=== PATIENT | female | born 1985 ===

== ENCOUNTER 2016-12-04 19:54 | Emergency (ER) | payer BC, OTHER ==
[2016-12-04 20:19] VITALS: RESP 19; BMI 25.8
[2016-12-04] MEDS ORDERED: Sodium Chloride 0.9% 1,000 ML IV STA (20:59)
[2016-12-04 21:23] LABS: ALB/GLOB RATIO 1.2 (1.1-1.8); ALKALINE PHOSPHATASE 66 U/L (38-133); ALT/SGPT 34 U/L (7-56); AST/SGOT 26 U/L (15-39); BILIRUBIN,TOTAL 0.5 mg/dL (0.2-1.3); BLOOD UREA NITROGEN 14 mg/dL (7-21); CALCIUM 9.4 mg/dL (8.4-10.5); CARBON DIOXIDE 26 mmol/L (21-33); CHLORIDE 99 mmol/L (98-107); GFR AFRICAN-AMERICAN > 60; GLUCOSE,RANDOM 100 mg/dL (70-110); POTASSIUM 3.4 mmol/L (3.6-5.0); SODIUM 135 mmol/L (132-148); TOTAL PROTEIN 7.7 g/dL (5.8-8.3)
[2016-12-04 21:25] LABS: ADD MANUAL DIFF? NO; BASO # 0.01 K/mm3 (0.0-2.0); BASO % 0.1 % (0.0-3.0); EOS # 0.2 (0.0-0.7); EOS % 2.1 % (1.5-5.0); GRAN # 5.29 (1.4-6.5); GRAN % 58.9 % (50.0-68.0); HEMATOCRIT 36.6 % (36.0-48.0); LYMPH # 2.9 (1.2-3.4); LYMPH % 32.3 % (22.0-35.0); MEAN CELL VOLUME 84.3 fL (80.0-105.0); MEAN CORPUSCULAR HEMOGLOBIN 29.5 pg (25.0-35.0); MEAN PLATELET VOLUME 9.5 fl (7.0-11.0); MONO # 0.6 (0.1-0.6); MONO % 6.6 % (1.0-6.0); PLATELET COUNT 233 10^3/uL (120.0-450.0); RED CELL DISTRIBUTION WIDTH 14.1 % (11.5-14.5)
[2016-12-04 22:35] LABS: URINE APPEARANCE CLEAR (CLEAR); URINE BILIRUBIN NEGATIVE (NEGATIVE); URINE BLOOD LARGE (NEGATIVE); URINE COLOR YELLOW (YELLOW); URINE GLUCOSE (UA) NEGATIVE (NEGATIVE); URINE KETONE NEGATIVE (NEGATIVE); URINE LEUKOCYTE ESTERASE TRACE Leu/uL (NEGATIVE); URINE PROTEIN NEGATIVE mg/dL (<30 mg/dL); URINE UROBILINOGEN 0.2 E.U./dL (<1 E.U./dL)
--- NOTE | 2016-12-04 23:00 | ED PDOC ---
Arrival/HPI - General Chief Complaint: Female Genitourinary Time Seen by Provider: 12/04/16 20:59 Historian: Patient - History of Present Illness Narrative History of Present Illness (Text): 12/04/16 22:58 31-year-old female presents today with vaginal bleeding that started just prior to arrival. Patient states she is and 20 the bathroom today and after urinating went to wipe and noticed bright red blood. Patient states when she stood up and looked in the toilet bowl that was blood within the toilet and also she got nervous and came to the emergency room. She denies any abdominal pain. Denies fevers or chills. No chest pain or shortness of breath. 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 Patient states she is only been one time in the past and has a 2-1/2-year-old girl who is healthy. Patient denies fevers or chills. Denies any urinary symptoms. Patient states the bleeding has stopped. No other complaints Time/Duration: Prior to Arrival Symptom Onset: Sudden Symptom Course: Resolved Past Medical History - Provider Review Nursing Documentation Reviewed: Yes - Travel History Have you recently traveled outside [place] w/in the past 3 mons?: No - Infectious Disease Hx of Infectious Diseases: None - Psychiatric Hx Substance Use: No - Surgical History Other/Comment: 1 vaginal - Anesthesia Hx Anesthesia: No Family/Social History - Physician Review Nursing Documentation Reviewed: Yes Family/Social History: Unknown Family HX Smoking Status: Never Smoked Hx Alcohol Use: No Hx Substance Use: No Allergies/Home Meds Allergies/Adverse Reactions: Allergies No Known Allergies Allergy (Verified 12/04/16 20:21) Home Medications: Home Meds Medication Instructions Recorded Confirmed No Known Home Med 12/04/16 12/04/16 Review of Systems - Review of Systems Constitutional: absent: Fatigue, Fevers Respiratory: absent: SOB, Cough Cardiovascular: absent: Chest Pain, Palpitations Gastrointestinal: absent: Abdominal Pain, Nausea, Vomiting Genitourinary Female: Vaginal Bleeding. absent: Dysuria, Frequency, Hematuria, Vaginal Discharge Musculoskeletal: absent: Arthralgias, Back Pain, Neck Pain Skin: absent: Rash, Pruritis Neurological: absent: Headache, Dizziness Psychiatric: absent: Anxiety, Depression Physical Exam Vital Signs Reviewed: Yes Vital Signs Temp Pulse Resp BP Pulse Ox 12/05/16 00:45 98.6 F 75 19 122/83 100 12/04/16 23:47 76 19 108/66 100 12/04/16 20:18 98.8 F 79 19 111/78 99 Temperature: Afebrile Blood Pressure: Normal Pulse: Regular Respiratory Rate: Normal Appearance: Positive for: Well-Appearing, Non-Toxic, Comfortable Pain Distress: None Mental Status: Positive for: Alert and Oriented X 3 - Systems Exam Head: Present: Atraumatic Mouth: Present: Moist Mucous Membranes Neck: Present: Normal Range of Motion Respiratory/Chest: Present: Clear to Auscultation, Good Air Exchange. No: Respiratory Distress, Accessory Muscle Use Cardiovascular: Present: Regular Rate and Rhythm, Normal S1, S2. No: Murmurs Abdomen: Present: Normal Bowel Sounds. No: Tenderness, Distention, Peritoneal Signs, Rebound, Guarding Genitourinary/Pelvic Exam: Present: Normal External Genitalia, Vaginal Bleeding (blood noted in vault; ), Cervical os Closed, Other (chaparoned by jaret [facility] ). No: Adenexal Mass, Cervical Motion Tendernes, Odor Back: Present: Normal Inspection. No: CVA Tenderness, Midline Tenderness, Paraspinal Tenderness Upper Extremity: Present: Normal Inspection. No: Cyanosis, Edema Lower Extremity: Present: Normal Inspection. No: Edema Neurological: Present: GCS=15, Speech Normal Skin: Present: Warm, Dry, Normal Color. No: Rashes Psychiatric: Present: Alert, Oriented x 3 Medical Decision Making ED Course and Treatment: 12/04/16 23:00 Patient is nontoxic well appearing in no distress. vital signs are stable. CBC: wnl CMP: wnl Beta hC TYPE AND SCREEN: B+ Urinalysis: + blood, trace leukocytes Ultrasound: FINDINGS: Gestation: There is a single living intrauterine gestation. There is a heart rate of 140 beats per minute. [place] rump length measures 7.16 cm. BPD measures 2.24 cm. FL measures approximately 1.07 cm A yolk sac is present, internal diameter measures 3.8 mm Placenta/amniotic fluid: Placenta is not well visualized. Amniotic fluid volume appears normal. Uterus/cervix: Uterus measures approximately 18 x 7.4 x 11.5 cm. There is a heterogeneous mass suggesting subchorionic hemorrhage. Ovaries: Neither ovary could be identified Free fluid: There is no free fluid. IMPRESSION: 13 week 3 day single living intrauterine gestation, estimated date of delivery 06/08/17 possible subchorionic hemorrhage pt with intermittent episodes of vaginal bleeding; after blood was released from vaginal vault, there was only minimal bleeding noted; no abdominal pain; pt denies cramping. case discussed in depth with dr. joy; pt with intermittent vaginal bleeding, heavy at times since prior to arrival. she states if patient is hemodynamically stable there is no indication to transfer patient for TRIM TECHNICIAN evaluation. Discussed all the results the patient and advised f/u with the low pressure boiler operator within the next 2 days. advised immediate return if symptoms worsen,persist or if new symptoms develop. Impression: threatened Tylenol every 4 hours as needed for pain Increase fluids Followup with the hims coder within the next 2 days Return immediately if symptoms worsen persist or if new symptoms develop: High fevers, heavy bleeding, severe abdominal pain, vomiting, diarrhea, dizziness or weakness or any other concerning symptoms develop. 12/05/16 01:00 - Lab Interpretations Lab Results: 12/04/16 20:59 12/04/16 21:00 Lab Results 12/04/16 21:40: Blood Type B POSITIVE, Antibody Screen Negative, BBK History Checked No verified bt 12/04/16 21:20: Urine Color Yellow, Urine Appearance Clear, Urine pH 7.0, Ur Specific [place] 1.015, Urine Protein Negative, Urine Glucose (UA) Negative, Urine Ketones Negative, Urine Blood Large H, Urine Nitrate Negative, Urine Bilirubin Negative, Urine Urobilinogen 0.2, Ur Leukocyte Esterase Trace H, Urine RBC 2 - 5, Urine WBC 0 - 2, Ur Epithelial Cells 1 - 3, Urine Bacteria Mod , Urine Other Fiber 12/04/16 21:00: Beta HCG, Quant 06079.00 H 12/04/16 21:00: Sodium 135, Potassium 3.4 L, Chloride 99, Carbon Dioxide 26, Anion Gap 13, BUN 14, Creatinine 0.6, Est GFR ( Amer) > 60, Est GFR (Non- Af Amer) > 60, Random Glucose 100, Calcium 9.4, Total Bilirubin 0.5, AST 26, ALT 34, Alkaline Phosphatase 66, Total Protein 7.7, Albumin 4.2, Globulin 3.5, Albumin/Globulin Ratio 1.2 12/04/16 20:59: WBC 9.0, RBC 4.34, Hgb 12.8, Hct 36.6, MCV 84.3, MCH 29.5, MCHC 35.0, RDW 14.1, Plt Count 233, MPV 9.5, Gran % 58.9, Lymph % (Auto) 32.3, [place] % (Auto) 6.6 H, Eos % (Auto) 2.1, Baso % (Auto) 0.1, Gran # 5.29, Lymph # 2.9, [place] # 0.6, Eos # 0.2, Baso # 0.01 - RAD Interpretation Radiology Orders: 12/04/16 20:59 AGE [US] Stat - Medication Orders Current Medication Orders: Discontinued Medications Sodium Chloride (Sodium Chloride 0.9%) 1,000 mls @ 999 mls/hr IV .Q1H1M STA Stop: 12/04/16 21:59 Last Admin: 12/04/16 21:07 Dose: 999 mls/hr Disposition/Present on Arrival - Present on Arrival Any Indicators Present on Arrival: No History of DVT/PE: No History of Uncontrolled Diabetes: No Urinary Catheter: No History of Decub. Ulcer: No History Surgical Site Infection Following: None - Disposition Have Diagnosis and Disposition been Completed?: Yes Diagnosis: Threatened Disposition: HOME/ ROUTINE Disposition Time: 00:54 Patient Plan: Discharge Patient Problems: Current Active Problems Problem Status Onset Threatened Acute Condition: GOOD Discharge Instructions (ExitCare): Threatened Miscarriage (ED) Additional Instructions: increase fluids continue vitamins follow up with the supervisor brine within the next 2 days return immediately if symptoms worsen,persist or if new symptoms develop; high fevers, abdominal pain, heavy bleeding, dizziness, weakness or if any other concerning symptoms develop. Referrals: Violet Joy MD [Staff Provider] - Follow up with primary
--- NOTE | 2016-12-04 23:10 | US ---
EXAM: US First Trimester, Transabdominal CLINICAL HISTORY: 31 years old, female; Pain; complicated by bleeding; Lower; First trimester; Gestational age or lmp: 13wks; ; unknown LMP TECHNIQUE: Real-time transabdominal obstetrical ultrasound of the maternal pelvis and a first trimester with image documentation. EXAM DATE/TIME: 12/04/2016 8:59 PM COMPARISON: There are no prior studies for comparison. FINDINGS: Gestation: There is a single living intrauterine gestation. There is a heart rate of 140 beats per minute. [place] rump length measures 7.16 cm. BPD measures 2.24 cm. FL measures approximately 1.07 cm A yolk sac is present, internal diameter measures 3.8 mm Placenta/amniotic fluid: Placenta is not well visualized. Amniotic fluid volume appears normal. Uterus/cervix: Uterus measures approximately 18 x 7.4 x 11.5 cm. There is a heterogeneous mass suggesting subchorionic hemorrhage. Ovaries: Neither ovary could be identified Free fluid: There is no free fluid. IMPRESSION: 13 week 3 day single living intrauterine gestation, estimated date of delivery 06/08/17 possible subchorionic hemorrhage
[2016-12-04 23:11] LABS: URINE BACTERIA MOD (NEG); URINE WBC 0 - 2 /hpf (0-6)
[2016-12-04 23:48] VITALS: O2SAT 100
[2016-12-05 00:46] VITALS: BP 122/83; PULSE 75; TEMP 98.6
== END 2016-12-05 01:15 | disposition home or self-care (01) ==
LOC: ED 19:54 → MERGE 19:54 → ED 12-05 01:15
DX: O20.0 Threatened abortion (principal); Z3A.13 13 weeks gestation of pregnancy
CPT/HCPCS: 76815; 80053; 81001; 84702; 85025; 86850; 86900; 87086; 99283; J7040